=== PATIENT | female | born 1975 | race Hispanic/Latino ===

== ENCOUNTER → 2022-12-08 | Outpatient (CLI) | payer MEDICARE | LOC: RAD 08:38 | PROVIDERS: ATTEND Nurse Practitioner Family | DX: J18.9 Pneumonia, unspecified organism (principal) | CPT/HCPCS: 93306 ==

== ENCOUNTER 2023-02-27 13:03 | Outpatient (RCR) | payer MEDICARE | END 2023-03-20 | LOC: RESP 13:03 | PROVIDERS: ATTEND Nurse Practitioner Family | DX: J84.9 Interstitial pulmonary disease, unspecified (principal); G47.33 Obstructive sleep apnea (adult) (pediatric); K21.9 Gastro-esophageal reflux disease without esophagitis; J45.909 Unspecified asthma, uncomplicated | CPT/HCPCS: 94799 ==

== ENCOUNTER 2023-04-09 08:46 | Outpatient (RCR) | payer MEDICARE | END 2023-04-19 | LOC: RESP 08:46 | PROVIDERS: ATTEND Family Medicine | DX: J45.909 Unspecified asthma, uncomplicated (principal); K21.9 Gastro-esophageal reflux disease without esophagitis; J84.9 Interstitial pulmonary disease, unspecified; G47.33 Obstructive sleep apnea (adult) (pediatric) | CPT/HCPCS: 94626 ×5; G0238 ×5 ==

== ENCOUNTER → 2023-09-19 | Outpatient (REF) | payer MEDICARE | LOC: CT 13:39 | PROVIDERS: ATTEND Nurse Practitioner Family | DX: R09.02 Hypoxemia (principal); J84.9 Interstitial pulmonary disease, unspecified; J45.909 Unspecified asthma, uncomplicated | CPT/HCPCS: 71250 ==

== ENCOUNTER → 2024-04-30 | Outpatient (REF) | payer MEDICARE | LOC: CT 12:19 | PROVIDERS: ATTEND Nurse Practitioner Family | DX: R09.02 Hypoxemia (principal); J84.9 Interstitial pulmonary disease, unspecified; J84.10 Pulmonary fibrosis, unspecified | CPT/HCPCS: 71250 ==

== ENCOUNTER → 2024-06-04 | Outpatient (REF) | payer MEDICARE | LOC: RAD 09:15 | PROVIDERS: ATTEND Nurse Practitioner Family | DX: J84.9 Interstitial pulmonary disease, unspecified (principal); J47.1 Bronchiectasis with (acute) exacerbation | CPT/HCPCS: 71046 ==

== ENCOUNTER → 2024-06-19 | Outpatient (REF) | payer MEDICARE | LOC: RESP 09:16 → EDSTATUS 10:00 | PROVIDERS: ATTEND Nurse Practitioner Family | DX: R09.02 Hypoxemia (principal); J84.9 Interstitial pulmonary disease, unspecified; J84.10 Pulmonary fibrosis, unspecified | CPT/HCPCS: 94060; 94727; 94729 ==

== ENCOUNTER → 2025-01-15 | Outpatient (REF) | payer MEDICARE, OTHER ==
[~2025-01-15] MED LIST: ALBUTEROL SULF 0.083% NEB SOLN 3 ML NEB ONE
== END ==
LOC: RESP 09:37
PROVIDERS: ATTEND Nurse Practitioner Family
DX: R09.02 Hypoxemia (principal); J84.9 Interstitial pulmonary disease, unspecified; Z79.899 Other long term (current) drug therapy
CPT/HCPCS: 94060; 94727; 94729